=== PATIENT | female | born 1955 | race Caucasian/White ===

== ENCOUNTER 2018-09-13 07:59 | Day surgery (SDC) | payer OTHER, MEDICAID ==
[2018-09-13] MEDS ORDERED: ceFAZolin 2 GM/DEXTROSE 100 ML IV ONE (08:47)
[2018-09-13] MEDS ORDERED: LR 1,000 ML IV ONE (08:48)
--- NOTE | 2018-09-13 08:51 | PDHPUP ---
History & Physical Update H&P update statement: This history and physical update is based on an assessment of the patient which was completed after admission or registration (within 24 hours), but prior to the surgery/procedure. H&P update: H&P reviewed & patient examined, no change in patient's condition since H&P completed
[2018-09-13] MEDS ORDERED: CEFAZOLIN 2 GM/DEXTROSE/100 ML BAG IV ONE (08:54)
--- NOTE | 2018-09-13 08:55 | PDANEPAE ---
ANE History of Present Illness ligation of old fistula and creation of another on right for renal failure ANE Past Medical History - Cardiovascular History Hx Hypertension: Yes Hx Arrhythmias: No Hx Chest Pain: No Hx Coronary Artery / Peripheral Vascular Disease: No Hx CHF / Valvular Disease: No Hx Palpitations: No - Pulmonary History Hx COPD: No Hx Asthma/Reactive Airway Disease: No Hx Recent Upper Respiratory Infection: No Hx Oxygen in Use at Home: Yes O2 in Use at Home (L/minute): 3 Hx Sleep Apnea: Yes Sleep Apnea Screening Result - Last Documented: Positive Pulmonary History Comment: USES NICOTINE PATCH TO HELP WITH SMOKING CESSATION. MAGALYS USES OXYGEN HS - Neurologic History Hx Cerebrovascular Accident: No Hx Seizures: No Hx Dementia: No - Endocrine History Hx Diabetes: No Endocrine History Comment: HYPOTHYROID. BORDERLINE DIABETIC - Renal History Hx Renal Disorders: Yes Renal History Comment: RENAL TRANSPLANT - Liver History Hx Hepatic Disorders: No - Neurological & Psychiatric Hx Hx Neurological and Psychiatric Disorders: Yes Neurological / Psychiatric History Comment: ANXIETY/DEPRESSION - Cancer History Hx Cancer: No - Congenital Disorder History Hx Congenital Disorders: No - GI History Hx Gastrointestinal Disorders: Yes Gastrointestinal History Comment: REFLUX - Other Health History Other Health History: BALANCE ISSUES USES WALKER. SCOLIOSIS. CHRONIC NECK PROBLEMS. OSTEOARTHRITIS. NEUROPATHY MATTHEW FEET. FULL DENTURES - Chronic Pain History Chronic Pain: Yes (ENTIRE RT SIDE) - Surgical History Prior Surgeries: LOWER DENTURE SNAPS. MATTHEW CATARACT 2018. AV FISTULA 2013. RT RENAL TRANSPLANT 2011. MATTHEW NEPHRECTOMY. HERNIA REPAIR. RT MIDDLE FINGER ORIF WITH POST HARDWARE REMVL ANE Review of Systems Review of Systems: - Exercise capacity METS (RN): 1 METS ANE Patient History - Allergies Allergies/Adverse Reactions: acyclovir Allergy (Verified 09/09/18 17:38) Unknown baclofen Allergy (Verified 09/09/18 17:38) CAN'T BE MIXED WITH DOXEPIN docetaxel Allergy (Verified 09/09/18 17:38) Unknown doxepin [Doxepin] Allergy (Verified 09/09/18 17:38) CAN'T BE MIXED WITH BACLOFEN - Home Medications Home Medications: Amitiza DAILY 09/09/18 [Last Taken Unknown] Amlodipine Besylate DAILY 09/09/18 [Last Taken Unknown] Calcitriol DAILY 09/09/18 [Last Taken Unknown] Clonidine MISC DAILY 09/09/18 [Last Taken Unknown] DULoxetine DAILY 09/09/18 [Last Taken Unknown] Dulcolax DAILY 09/09/18 [Last Taken Unknown] Gabapentin TID 09/09/18 [Last Taken Unknown] Herbals/Supplements -Info Only DAILY 09/09/18 [Last Taken Unknown] Levothyroxine DAILY 09/09/18 [Last Taken Unknown] Losartan Potassium TID 09/09/18 [Last Taken Unknown] Miralax 17 gm (*) BID 09/09/18 [Last Taken Unknown] Nicotine Patch DAILY 09/09/18 [Last Taken Unknown] Prednisolone DAILY 09/09/18 [Last Taken Unknown] Rosuvastatin Calcium HS 09/09/18 [Last Taken Unknown] Tacrolimus BID 09/09/18 [Last Taken Unknown] Torsemide BID 09/09/18 [Last Taken Unknown] azaTHIOprine DAILY 09/09/18 [Last Taken Unknown] hydrALAZINE TID 09/09/18 [Last Taken Unknown] oxyCODONE CR 5XD 09/09/18 [Last Taken Unknown] traZODone HS 09/09/18 [Last Taken Unknown] - Smoking Hx Smoking Status: Heavy smoker ANE Labs/Vital Signs - Vital Signs Height: 157.48 cm Weight: 48.988 kg ANE Physical Exam - Airway Neck exam: FROM Mallampati Score: Class 1 Mouth exam: poor dentition, dentures - Pulmonary Pulmonary: no respiratory distress, no rales or rhonchi - Cardiovascular Cardiovascular: regular rate and rhythym, no murmur, rub, or gallop - ASA Status ASA Status: III ANE Anesthesia Plan Anesthesia Plan: GA w LMA Total IV Anesthesia: No
[2018-09-13] MEDS ORDERED: MIDAZOLAM 2 MG/2 ML VIAL IVP ONE (08:56)
[2018-09-13] MEDS ORDERED: THROMBIN (BOVINE) 20,000 UNIT VIAL TP ONE (09:15)
[2018-09-13] MEDS ORDERED: THROMBIN (BOVINE) 5,000 UNIT VIAL TP ONE (09:16)
[2018-09-13] MEDS ORDERED: PROTAMINE SULFATE 50 MG/5 ML VIAL IVP ONE (09:16)
[2018-09-13] MEDS ORDERED: PAPAVERINE HCL 60 MG/2 ML SDV ONE (09:16)
[2018-09-13] MEDS ORDERED: BUPIVACAINE 0.5% 30 ML SDV ONE ×2 (09:16→09:41)
[2018-09-13] MEDS ORDERED: LIDOCAINE 2% 100 MG/5 ML SYR ONE (09:43)
[2018-09-13] MEDS ORDERED: fentaNYL 100 MCG/2 ML INJ ONE (09:43)
[2018-09-13] MEDS ORDERED: PROPOFOL 200 MG/20 ML VIAL ONE (09:43)
[2018-09-13] MEDS ORDERED: DEXAMETHASONE 4 MG/ML VIAL ONE (09:43)
[2018-09-13] MEDS ORDERED: NALOXONE HCL 0.4 MG/ML INJ IVP PRN (10:41)
[2018-09-13] MEDS ORDERED: HYDROCODONE/APAP 5/325 TAB PO PRN (10:41)
[2018-09-13] MEDS ORDERED: fentaNYL 100 MCG/2 ML INJ IVP PRN (10:41)
[2018-09-13] MEDS ORDERED: MEPERIDINE 25 MG/0.5 ML AMP IVP PRN (10:41)
[2018-09-13] MEDS ORDERED: METOCLOPRAMIDE 10 MG/2 ML VIAL IVP PRN (10:41)
--- NOTE | 2018-09-13 10:53 | POSTANESTH ---
Post Anesthetic Evaluation Cardiovascular Status: Normal, Stable Respiratory Status: Normal, Stable Level of Consciousness/Mental Status: Can Participate in Eval, Moderately Sleepy Pain Control: Adequate, Prn Tx Ordered Nausea/Vomiting Control: Adequate, Prn Tx Ordered Complications Possibly Related to Anesthesia: None Noted
[2018-09-13 14:05] VITALS: BP 113/74
--- NOTE | 2018-09-20 13:20 | GOP ---
[f rep st] OPERATIVE REPORT DATE OF OPERATION: 09/13/2018 SURGEON: Nolberto Ramirez MD PUBLIC HEALTH ADMINISTRATOR: Karen Jean NP ANESTHESIOLOGIST: Dr. 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 POSTOPERATIVE DIAGNOSIS: Brachiocephalic arteriovenous fistula aneurysm. PROCEDURE PERFORMED: Resection of an arteriovenous fistula aneurysm. FINDINGS: 2,5 cm aneurysm, good distal arterial flow DESCRIPTION OF PROCEDURE: The patient was taken to the operating room, where she received satisfactory general endotracheal anesthesia by Dr. Alfaro. She was placed in supine position with the right arm outstretched on an armboard. Prepped and draped in the usual sterile fashion. A longitudinal incision was made over the palpable aneurysm. Longitudinal incision made through the previous old scar and dissection extended down. The aneurysm was carefully dissected free from surrounding subcutaneous tissue. It was isolated back to the junction with the brachial artery. At that point, the base of the aneurysm was closed with a running 5-0 Prolene suture, closing up the arterial wall as well. The aneurysm was then resected and sent to Pathology. Hemostasis was assured. Subcu was closed with 3-0 Vicryl and the skin with a 4- 0 Monocryl subcuticular stitch. There were no complications. Taken to the recovery room in good condition. Copy requested to: Dr. Lisa Chandra /[id number]/MODL MTDD
== END 2018-09-13 14:20 | disposition home or self-care (01) ==
LOC: FSGY 07:59
PROVIDERS: ATTEND Surgery
DX: T82.848A Pain due to vascular prosthetic devices, implants and grafts, initial encounter (principal); M79.601 Pain in right arm; E11.40 Type 2 diabetes mellitus with diabetic neuropathy, unspecified; K21.9 Gastro-esophageal reflux disease without esophagitis; I10 Essential (primary) hypertension; F17.200 Nicotine dependence, unspecified, uncomplicated; G47.33 Obstructive sleep apnea (adult) (pediatric); E03.9 Hypothyroidism, unspecified; F32.9 Major depressive disorder, single episode, unspecified; F41.9 Anxiety disorder, unspecified; Z87.448 Personal history of other diseases of urinary system; Z94.0 Kidney transplant status; Z90.5 Acquired absence of kidney
CPT/HCPCS: J0690; J1100; J1644; J2001; J2250; J2440; J2704; J2720; J3010